=== PATIENT | male | born 1955 | race Caucasian/White ===

== ENCOUNTER 2023-04-29 11:09 | Emergency (ER) | payer OTHER, SELFPAY ==
--- NOTE | ~2023-04-29 | XR_ITS ---
EXAMINATION: XR LUMBOSACRAL SPINE CLINICAL INFORMATION: Back pain COMPARISON: CT chest 06/11/2019 TECHNIQUE: Three views of the lumbosacral spine. FINDINGS: Disc spaces are relatively well preserved. There is a compression fracture involving the inferior endplate of L1 and the superior endplate of T12. When comparison is made to the CT from 06/11/2019, these findings are unchanged. Aortic calcification is present. XR/XR lumbar spine 2-3V IMPRESSION: Compression fractures T12 and L1, unchanged compared with 06/11/2019. No acute finding.
--- NOTE | ~2023-04-29 | XR_ITS ---
EXAMINATION: XR CHEST CLINICAL INFORMATION: Shortness of breath COMPARISON: Chest radiograph and CT chest 06/11/2019 TECHNIQUE: 2 views of the chest were obtained. FINDINGS: There is mild cardiomegaly. No gross CHF. Mild vascular redistribution seen previously is improved. The left hemidiaphragm remains mildly elevated. Some left basilar atelectasis is seen. The previously seen right infrahilar airspace opacity has resolved and at this time the right lung is clear. XR/XR chest 2V IMPRESSION: Mild cardiomegaly. No acute intrathoracic disease. Left basilar atelectasis.
[2023-04-29 11:34] VITALS: BP 172/83; PULSE 75; RESP 18; TEMP 36.6; O2SAT 96; BMI 30.7
--- NOTE | 2023-04-29 11:39 | ECG_ITS ---
Test Reason : chest pain Blood Pressure : / mmHG Vent. Rate : 059 BPM Atrial Rate : 059 BPM P-R Int : 222 ms QRS Dur : 162 ms QT Int : 456 ms P-R-T Axes : 000 -80 021 degrees QTc Int : 451 ms Sinus bradycardia with 1st degree A-V block Right bundle branch block Left anterior fascicular block Bifascicular block Abnormal ECG When compared with ECG of 11-JUN-2019 15:39, VA interval has increased Referred By: Ruben Jonse Electronically Signed By:NEETU LIN MD
--- NOTE | 2023-04-29 11:40 | ED_ITS ---
HPI - General Adult General Chief complaint: Back Pain/Injury Stated complaint: Referred by PCP - shortness of breath Time Seen by Provider: 04/29/23 12:01 Mode of arrival: ambulatory History of Present Illness HPI narrative: This is a 67-year-old male with history of osteoporosis who presents with 2 weeks of mid upper back pain that is an acute on chronic exacerbation without lower extremity numbness/tingling/weakness and no bowel or bladder issues and denies any fevers or chills but states that there is pain that wraps around bilateral sides into the upper abdomen he denies any traumatic event but states that he has been working on his house over the summer and states he has had this pain before. Patient denies any headache/dizziness and explicitly states this is not heart related pain. Related Data Previous Rx's Medication Instructions Recorded cyclobenzaprine 5 mg tablet 5 mg PO BEDTIME PRN muscle spasm 04/29/23 #4 tabs Allergies Allergy/AdvReac Type Severity Reaction Status Date / Time No Known Allergies Allergy Verified 04/29/23 11:34 Review of Systems 2 Review of Systems: Pertinent positives and negatives as stated in HPI PMFSH Past Medical History Source: nursing notes reviewed Social History Social History Alcohol intake: current Alcohol intake frequency: holidays/special occasions only Smoked in Last 30 Days: No Use of substances other than those prescribed or required for medical reasons: Yes Substance Use Type: Marijuana Advance Directives: No Advance Directives Information Provided: Yes Physical Exam ED Vital Signs: Vital Signs - 24 hr 04/29/23 11:34 Temperature 97.9 F Pulse Rate 75 Respiratory Rate 18 Blood Pressure 172/83 H Pulse Oximetry 96 Oxygen Delivery Method Room Air BMI result Body Mass Index 30.7 VITAL SIGNS: Reviewed. GENERAL: Well developed, well nourished, in no acute distress. HEAD: Normocephalic/atraumatic EYES: PERRLA, EOMI EARS: Ext canals without abnormality NOSE: Nares patent bilateral OROPHARYNX: no oral lesions noted, posterior pharynx clear NECK: Supple, no adenopathy LUNGS: Normal breath sounds. No adventitious sounds or accessory muscle use. SpO2<96> CARDIOVASCULAR: Regular rate and rhythm without noted murmurs ABDOMEN: Soft, non-tender, non-distended with bowel sounds. BACK: No midline vertebral tenderness without step-offs. MUSCULOSKELETAL: No tenderness, deformities, or effusions noted on gross inspection. EXTREMITIES: No cyanosis, clubbing or edema. SKIN: Inspection of the skin reveals no rashes NEUROLOGIC: Alert and oriented x 4. Strength and sensation to light touch were grossly intact x 4. Course Course Course Narrative: RME: 67 yold male presents to the ED for chest pain, abdominal pain, and back suero with shorntess of breath. patient was referred by his PCP. Patient states family history of heart attacks. Negative for leg sweling, calf pain, or piting edema. lungs clear. Xray, EKG, and labs ordered Medications Administered Discontinued Medications Generic Name Dose Route Start Last Admin Trade Name Freq PRN Reason Stop Dose Admin Acetaminophen 975 mg 04/29/23 13:18 04/29/23 13:27 Acetaminophen 325 Mg Tablet PO 04/29/23 13:19 975 mg ONCE ONE Administration Ketorolac Tromethamine 15 mg 04/29/23 13:18 04/29/23 13:28 Ketorolac Tromethamine 15 Mg/Ml Vial IM 04/29/23 13:19 15 mg ONCE ONE Administration Lidocaine 1 patch 04/29/23 13:18 04/29/23 13:28 Lidocaine 4 % Patch Adh..Patch TRANSDERMA 04/29/23 13:19 1 patch ONCE ONE Administration Protocol Medical Decision Making Medical Decision Making [facility] Narrative: 67-year-old male with history and clinical presentation, DDX: Pneumonia, doubt ACS, suspect acute on chronic back pain with muscle spasm. PERC negative I reviewed all investigations and hematologic indices are negative for leukocytosis or left shift, there is no thrombocytopenia and there is a chronically stable normocytic anemia. Coagulation studies are negative. Chemistry indices are grossly within normal limits without XOCHITL and no electrolyte or liver enzyme derangements. BMP is within normal limits and troponin although detectable is not significantly elevated and patient denies any precordial chest pain. Urinalysis is negative for UTI or hematuria. EKG without STEMI. Chest x-ray demonstrates cardiomegaly but no infiltrates an otherwise my interpretation is in agreement with radiology's impression. L- spine imaging consistent with chronic compression fractures and no acute changes. He is otherwise discharged. Patient treated with combination analgesics and lidocaine patch. On re- evaluation patient is feeling improved. Differential Diagnosis Differential Diagnoses: The differential diagnosis associated with the presentation includes Please see the discussion above Admission/Observation Consideration of admission/observation: Escalation of care including admission/observation considered Please see the discussion above Lab Data MDM Lab Attestation statement: I reviewed the patient's lab results. Please see the discussion above 04/29/23 12:03 04/29/23 12:03 Labs: Lab Results 04/29/23 Range/Units 12:03 WBC 6.6 (4.8-10.8) X10*3/uL RBC 4.45 L (4.60-5.80) X10*6/uL Hgb 13.1 L (14.0-18.0) g/dl Hct 40.6 L (42.0-52.0) % MCV 91.2 (80.0-98.0) fL MCH 29.4 (27.0-33.0) pg MCHC 32.3 (31.0-36.0) g/dl RDW 14.2 (11.0-16.0) % Plt Count 392 (160-400) X10*3/uL MPV 9.7 (9.4-12.4) fL Immature Gran % (Auto) 0.2 (0.0-0.4) % Neut % (Auto) 51.0 (45-73) % Lymph % (Auto) 35.1 (20-40) % [place] % (Auto) 10.7 (2-11) % Eos % (Auto) 2.4 (0-4) % Baso % (Auto) 0.6 (0-2) % Lymph # (Auto) 2.3 (1.2-4.9) X10*3/uL [place] # (Auto) 0.7 (0.1-1.2) X10*3/uL Eos # (Auto) 0.2 (0.0-0.4) X10*3/uL Baso # (Auto) 0.0 (0.0-0.2) X10*3/uL Abs Immat Gran (auto) 0.01 (0.00-0.03) X10*3/uL Absolute Neuts (auto) 3.4 (2.0-8.3) x10*3/uL Absolute Nucleated RBC 0.000 (0.0-0.012) X10*3/uL Nucleated RBC % (auto) 0.0 (0.0-0.2) /100WBC PT 12.0 (11.1-13.3) SEC INR 1.0 (0.9-1.1) APTT 31.5 (26.0-36.4) SEC Sodium 140 (135-145) mmol/L Potassium 4.1 (3.3-5.1) mmol/L Chloride 106 (96-108) mmol/L Carbon Dioxide 30 H (22-29) mmol/L Anion Gap 8 L (12-20) BUN 17 H (9-16) mg/dL Creatinine 0.76 (0.5-1.4) mg/dL Estim Creat Clear Calc 98.3 Estimated GFR > 60 Random Glucose 104 (60-115) mg/dL Calcium 9.1 (8.4-10.2) mg/dL Magnesium 2.1 (1.6-2.6) mg/dL Total Bilirubin 0.4 (0.0-1.0) mg/dL AST 20 (5-37) U/L ALT 19 (0-40) U/L Alkaline Phosphatase 106 (39-117) U/L Troponin I High Sens 8.1 (<3.5-35.0) ng/L B-Natriuretic Peptide 59 (<100) pg/mL Total Protein 8.0 (6.5-8.0) g/dL Albumin 4.4 (3.5-5.0) g/dL Urine Color Yellow Urine Appearance Clear Urine pH 6.5 (5.0-9.0) Ur Specific [place] >= 1.030 H (1.005-1.025) Urine Protein Trace (Neg-Trace) mg/dL Urine Glucose (UA) Negative (Negative) mg/dL Urine Ketones Trace (Negative) mg/dL Urine Blood Negative (Negative) Urine Nitrite Negative (Negative) Ur Leukocyte Esterase Trace H (Negative) Urine RBC 3-5 H (0-2) /HPF Urine WBC 0-5 (0-5) /HPF Ur Squamous Epith Cells 0-2 (0-2) /HPF Urine Bacteria None Seen (None Seen) Hyaline Casts 0-2 (0-2) /LPF Independent Interpretation I performed an independent interpretation of an: EKG Interpretation: Sinus bradycardia with first-degree AV block, RBBB at baseline, HR -59, no STEMI, QTC is within normal limits. Radiology Impression Discussion of test interpretation with radiology: I have reviewed the radiologist's reading. Radiologist Impression: Please see the discussion above External Record Review External record reviewed: Outpatient record and Prior outpatient labs Discharge Plan Discharge Clinical Impression: Acute exacerbation of chronic low back pain, Muscle spasm Patient Disposition: Home, Self-Care Instructions: Muscle Spasm (ED), Back Pain (ED), Lower Back Exercises (ED) Additional Instructions: 1. Tylenol 1000 mg, orally, every 6 hours as needed for pain control. Do not exceed 4000 mg within 24 hours. 2. Ibuprofen 400 mg, orally with milk or food, every 6 hours as needed for pain control. You may take this medication with Tylenol for improved symptom relief. 3. Recommend [id number] lidocaine patch, apply to area of maximal tenderness as directed on the outside packaging. 4. Please follow-up with your primary care doctor in the next 1-2 days. Return to the ER for any worsening symptoms. Prescriptions: New cyclobenzaprine 5 mg tablet 5 mg PO BEDTIME PRN (Reason: muscle spasm) Qty: 4 0RF Referrals: Shady Nguyen [Primary Care Provider] - Interventions: ED Discharge Assessment Last Done: 04/29/23 15:12 Discharge Date/Time: 04/29/23 15:12
[2023-04-29 12:12] LABS: MANUAL DIFF FLAG NO
[2023-04-29 12:15] LABS: Basophils Percent Auto 0.6 % (0-2); Eosinophils Absolute Auto 0.2 X10*3/uL (0.0-0.4); Eosinophils Percent Auto 2.4 % (0-4); Hematocrit 40.6 % (42.0-52.0); Hemoglobin 13.1 g/dl (14.0-18.0); Imm Gran Abs Auto 0.01 X10*3/uL (0.00-0.03); Imm Gran Pct Auto 0.2 % (0.0-0.4); Lymphocytes Absolute Auto 2.3 X10*3/uL (1.2-4.9); Lymphocytes Percent Auto 35.1 % (20-40); Mean Corpuscular HGB Conc 32.3 g/dl (31.0-36.0); Mean Corpuscular Hemoglobin 29.4 pg (27.0-33.0); Mean Corpuscular Volume 91.2 fL (80.0-98.0); Mean Platelet Volume 9.7 fL (9.4-12.4); Monocytes Absolute Auto 0.7 X10*3/uL (0.1-1.2); Monocytes Percent Auto 10.7 % (2-11); Neutrophils Absolute Auto 3.4 x10*3/uL (2.0-8.3); Platelet Count 392 X10*3/uL (160-400); Red Blood Count 4.45 X10*6/uL (4.60-5.80); Red Cell Distribution Width 14.2 % (11.0-16.0); White Blood Count 6.6 X10*3/uL (4.8-10.8)
[2023-04-29 12:18] LABS: Appearance Urine Clear; Color Urine Yellow; Glucose Urine UA Negative (Negative); Leukocyte Esterase Urine Trace (Negative); Nitrite Urine Negative (Negative); PH 6.5 (5.0-9.0); Specific Gravity - Urine >= 1.030 (1.005-1.025); UMIC TRIGGER UACC YES; Urine Blood Negative (Negative); Urine Ketones Trace mg/dL (Negative); Urine Protein Trace mg/dL (Neg-Trace)
[2023-04-29 12:20] LABS: Bacteria Urine None Seen (None Seen); Hyaline Casts Urine 0-2 /LPF (0-2); Squamous Epithelial Cell Urine 0-2 /HPF (0-2); WBC Urine 0-5 /HPF (0-5)
[2023-04-29 12:24] LABS: Partial Thromboplastin Time 31.5 SEC (26.0-36.4)
--- OUTSIDE RECORDS SUMMARY | 2023-04-29 12:28 | XMS_ITS | Continuity of Care Document ---
Author Name Unknown Organization [facility] Address [address] [place] [phone]- Care Team Providers Care Supervisor Boiler Repair Name Role Phone Shady Nguyen MD Primary Care Physician [place] [facility] [place] [facility] [address] [place] [phone]- [place] Allergies, Adverse Reactions, Alerts No Known Allergies Medications Calcium 600 +D oral tablet 1 tablet, By Mouth, 3 times a day, 0 Refills, Maintenance, 11/09/18 9:14:00 EDT Start Date: 11/09/18 Status: Ordered dorzolamide-timolol 2%-0.5% preservative-free ophthalmic solution 1 drops, Eyes, Both, 2 times a day, # 60 each, 0 Refills, Maintenance, 10/07/17 18:02:29 EDT, Solution Start Date: 10/07/17 Status: Ordered hydrochlorothiazide-lisinopril 12.5 mg-10 mg oral tablet 1 tablet, By Mouth, Daily, 0 Refills, Maintenance, 10/07/17 11:52:24 EDT Start Date: 10/07/17 Status: Ordered latanoprost 0.005% ophthalmic solution 1 drops, Eyes, Both, Daily at bedtime, # 3 mL, 0 Refills, Maintenance, 10/07/17 18:03:22 EDT, OphthSolution Start Date: 10/07/17 Status: Ordered Metformin 1 TAB, By Mouth, 2 times a day, 0 Refills, Maintenance, 10/07/17 11:53:01 EDT Start Date: 10/07/17 Status: Ordered Multivitamin Daily, 0 Refills, Maintenance, 11/09/18 9:14:07 EDT Start Date: 11/09/18 Status: Ordered NuLYTELY Lemon [place] oral powder for reconstitution 240 mL, By Mouth, Every 15 minutes, # 4,000 mL, 0 Refills, Maintenance, 09/25/21 15:22:00 EDT, [facility] Start Date: 09/25/21 Status: Ordered tamsulosin 0.4 mg oral capsule 0.4 mg, 1, capsule, By Mouth, Daily at bedtime, Refills 0, Maintenance, 10/07/17 11:51:29 EDT Start Date: 10/07/17 Status: Ordered Social History Social History Type Response Smoking Status Never (less than 100 in lifetime) entered on: 09/29/18 Sex
--- OUTSIDE RECORDS SUMMARY | 2023-04-29 12:28 | XMS_ITS | Continuity of Care Document ---
Author Name Unknown Organization [facility] Address [address] [place] [phone]- Care Team Providers Care Video Games Mechanic Name Role Phone Shady Nguyen MD [id number] [address] [place] [phone]- Encounter Diagnosis Encounter for screening colonoscopy(Discharge Diagnosis) - 10/30/21 Colon polyps(Discharge Diagnosis) - 10/30/21 Diabetes(Discharge Diagnosis) - 10/30/21 Encounter for other preprocedural examination(Final) - Discharge Disposition: A-D/C Home Attending Physician: Elia Chandra MD Admitting Physician: Elia Chandra MD Referring Physician: Dru Solis DO Allergies, Adverse Reactions, Alerts No Known Allergies Medications alendronate 70 mg oral tablet 1 tablet = 70 mg, By Mouth, Every week, # 4 tablet, 0 Refills, Maintenance, 08/30/19 15:00:00 EDT, Tablet Start Date: 08/30/19 Status: Ordered Calcium 600 +D oral tablet 1 tablet, [...] 11:52:24 EDT Start Date: 10/07/17 Status: Ordered hydrochlorothiazide-lisinopril 12.5 mg-20 mg oral tablet 1 tablet, By Mouth, Daily, # 30 tablet, 0 Refills, Maintenance, 08/30/19 14:57:00 EDT, Tablet Start Date: 08/30/19 Status: Ordered ibuprofen 800 mg oral tablet 800 mg, 1, tablet, By Mouth, 3 times a day, PRN, # 30 tablet, Refills 0, Maintenance, for pain, 08/30/19 14:58:00 EDT Start Date: 08/30/19 Status: Ordered latanoprost 0.005% ophthalmic solution 1 drops, Eyes, Both, Daily at bedtime, # 3 mL, 0 Refills, Maintenance, 10/07/17 18:03:22 EDT, OphthSolution Start Date: 10/07/17 Status: Ordered Metformin 1 TAB, By Mouth, 2 times a day, 0 Refills, Maintenance, 10/07/17 11:53:01 EDT Start Date: 10/07/17 Status: Ordered metFORMIN 500 mg oral tablet 1 tablet = 500 mg, By Mouth, Daily, with meals, # 30 tablet, 0 Refills, Maintenance, 08/30/19 14:58:00 EDT, Tablet Start Date: 08/30/19 Status: Ordered Multivitamin Daily, 0 Refills, Maintenance, 11/09/18 9:14:07 EDT Start Date: 11/09/18 Status: Ordered NuLYTELY Lemon [place] oral powder for reconstitution 240 mL, By Mouth, Every 15 minutes, # 4,000 mL, 0 Refills, Maintenance, 09/25/21 15:22:00 EDT, [facility] Start Date: 09/25/21 Status: Ordered ProAir HFA 90 mcg/inh inhalation aerosol with adapter 2, puffs, Inhalation, 4 times a day, PRN, # 8.5 Gm, Refills 0, Maintenance, 08/30/19 15:00:00 EDT, Aerosol Start Date: 08/30/19 Status: Ordered Pulmicort Flexhaler 180 mcg 2 puffs, Inhalation, 2 times a day, # 1 each, 0 Refills, Maintenance, 08/30/19 16:13:00 EDT, Powder, [facility]/pharmacy #[id number], 2 puffs Inhalation 2 times a day, 165, cm, 08/30/19 14:49:00 EDT, Height Start Date: 08/30/19 Status: Ordered Suprep Bowel Prep Kit oral liquid See Instructions, Follow label instrucitons on hiow to take the day before the colonosocpy, # 1 each, 0 Refills, Maintenance, 10/30/21 9:45:00 EDT, [facility]/pharmacy #[id number], Partial fill upon patient request if the prescription is for a schedule II opioid d... Start Date: 10/30/21 Status: Ordered tamsulosin 0.4 mg oral capsule 0.4 mg, 1, capsule, By Mouth, Daily, # 30 capsule, Refills 0, Maintenance, 08/30/19 14:58:00 EDT Start Date: 08/30/19 Status: Ordered tamsulosin 0.4 mg oral capsule 0.4 mg, 1, capsule, By Mouth, Daily at bedtime, Refills 0, Maintenance, 10/07/17 11:51:29 EDT Start Date: 10/07/17 Status: Ordered Timolol By Mouth, 2 times a day, 0 Refills, Maintenance, 08/30/19 14:58:00 EDT Start Date: 08/30/19 Status: Ordered Problem List Diagnosis Diagnosis Type Effective Dates Health Status Clinical Service Informant Encounter for screening colonoscopy Discharge Diagnosis 10/30/21 Colon polyps Discharge Diagnosis 10/30/21 Diabetes Discharge Diagnosis 10/30/21 Social History Social History Type Response Smoking Status Never (less than 100 in lifetime) entered on: 09/29/18 Sex
[2023-04-29 12:29] LABS: Alanine Aminotransferase 19 U/L (0-40); Albumin Level 4.4 g/dL (3.5-5.0); Alkaline Phosphatase 106 U/L (39-117); Anion Gap 8 (12-20); Aspartate Amino Transferase 20 U/L (5-37); Bilirubin Total 0.4 mg/dL (0.0-1.0); Blood Urea Nitrogen 17 mg/dL (9-16); Calcium 9.1 mg/dL (8.4-10.2); Carbon Dioxide 30 mmol/L (22-29); Chloride 106 mmol/L (96-108); Creatinine Clr Calc Pharmacy 98.3; Estimated Glomerular Filt Rate > 60; Glucose Random 104 mg/dL (60-115); Magnesium 2.1 mg/dL (1.6-2.6); Potassium 4.1 mmol/L (3.3-5.1); Sodium 140 mmol/L (135-145)
--- OUTSIDE RECORDS SUMMARY | 2023-04-29 12:29 | XMS_ITS | Continuity of Care Document ---
Author Name Unknown Organization [facility] Address [address] [place] [phone]- Care Team Providers Care Natural Resources Engineer Name Role Phone Shady Nguyen MD Primary Care Physician [place] [facility] [place]/11/19 - 06/11/[address] [address] [facility] Attending Physician: Miguel Angel Mcdaniels MD Allergies, Adverse Reactions, Alerts Substance Reaction Severity Status NKA Active Medications Calcium 600 +D oral tablet 1 [...] Start Date: 11/09/18 Status: Ordered NuLYTELY Lemon [place] oral powder for reconstitution 240 mL, By Mouth, Every 15 minutes, # 4,000 mL, 0 Refills, Maintenance, 09/29/18 12:05:40 EDT Start Date: 09/29/18 Status: Ordered tamsulosin 0.4 mg oral capsule 0.4 mg, 1, capsule, By Mouth, Daily at bedtime, Refills 0, Maintenance, 10/07/17 11:51:29 EDT Start Date: 10/07/17 Status: Ordered Social History Social History Type Response Smoking Status Never (less than 100 in lifetime) entered on: 09/29/18 Sex
[2023-04-29 12:35] LABS: B Type Natriuretic Peptide 59 pg/mL (<100)
[2023-04-29 12:36] LABS: Troponin-I High Sensitivity 8.1 ng/L (<3.5-35.0)
[2023-04-29] MEDS: Acetaminophen 325 MG TABLET 975 MG PO (13:27)
[2023-04-29] MEDS: Ketorolac Tromethamine 15 MG/ML VIAL IM (13:28)
[2023-04-29] MEDS: Lidocaine 4 % Patch ADH..PATCH 1 PATCH TRANSDERMA (13:28)
--- NOTE | 2023-04-29 15:11 | PC.NURSE ---
Patient left prior to being able to be discharged by this nurse.
== END 2023-04-29 15:12 | disposition home or self-care (01) ==
PROVIDERS: Physician Assistant; Emergency Provider Student in an Organized Health Care Education/Training Program; PCP Internal Medicine
DX: M54.50 Low back pain, unspecified (principal); G89.29 Other chronic pain; M62.830 Muscle spasm of back; R06.02 Shortness of breath
CPT/HCPCS: 36415; 71046; 72100; 80053; 81001; 83735; 83880; 84484; 85025; 85610; 85730; 93005; 96372; 99284; J1885